=== PATIENT | female | born 1970 | race Caucasian/White ===

== ENCOUNTER 2022-12-01 17:51 | Emergency (ER) | payer BC ==
[~2022-12-01] VITALS: Ht 167.6 cm; Wt 87.1 kg
[2022-12-01 18:42] VITALS: BP_SYST 123
[2022-12-01] MEDS ORDERED: IBUP-1969 PO (19:20)
[2022-12-01 21:55] VITALS: BP_SYST 119
== END 2022-12-01 21:55 | disposition home or self-care (01) ==
LOC: SED 17:51
DX: R07.89 Other chest pain (principal); R07.81 Pleurodynia; Z79.899 Other long term (current) drug therapy
CPT/HCPCS: 71045; 71100; 99284

== ENCOUNTER 2023-01-20 17:56 | Emergency (ER) | payer BC ==
[~2023-01-20] VITALS: Ht 170.2 cm; Wt 89.8 kg
[~2023-01-20 17:56] MED LIST: IBUP-1969 PO
[2023-01-20 17:58] VITALS: BP_SYST 137
[2023-01-20] MEDS: IPRATROPIUM/ALBUTEROL SULFATE 3 ML AMPUL.NEB (DUONEB) INH ONE ×2 (18:52→20:41)
[2023-01-20] MEDS: predniSONE 20 MG TABLET PO ONE (19:06)
[2023-01-20] MEDS: AZITHROMYCIN 250 MG TABLET PO ONE (19:06)
[2023-01-20 19:10] LABS: BASOPHILS # (AUTO) 0.1 K/uL (0.0-0.2); EOSINOPHILS # (AUTO) 0.3 K/uL (0.0-0.4); EOSINOPHILS % (AUTO) 2.1 % (0.0-4.0); HEMATOCRIT 39.4 % (36-48); HEMOGLOBIN 13.5 g/dL (12.0-16.0); LYMPHOCYTES # (AUTO) 4.5 K/uL (1.0-5.5); LYMPHOCYTES % (AUTO) 37.3 % (20.5-51.5); MEAN CORPUSCULAR HEMOGLOBIN 32 pg (27-31); MEAN CORPUSCULAR HGB CONC 34 % (32-36); MEAN CORPUSCULAR VOLUME 94 fL (79.0-98.0); MONOCYTES # (AUTO) 0.8 K/uL (0.0-1.0); MONOCYTES % (AUTO) 6.4 % (1.7-9.3); NEUTROPHILS # (AUTO) 6.5 K/uL (1.8-7.7); NEUTROPHILS % (AUTO) 53.2 % (40.0-70.0); PLATELET COUNT (AUTO) 215 K/uL (130-430); RED BLOOD CELL COUNT(AUTO) 4.19 MIL/uL (4.2-6.2); RED CELL DISTRIBUTION WIDTH 13.3 % (9.0-15.0); WHITE BLOOD COUNT (AUTO) 12.2 K/uL (4.8-10.8)
[2023-01-20 20:00] LABS: ALBUMIN 3.7 g/dL (3.4-4.8); ANION GAP 9 (5-15); ASPARTATE AMINOTRANSFERASE 23 U/L (10-37); CALCIUM 9.7 mg/dL (8.4-11.0); CHLORIDE 97 mmol/L (98-107); CREATININE 0.85 mg/dL (0.55-1.30); GLUCOSE 91 mg/dL (70-99); TOTAL BILIRUBIN 0.3 mg/dL (0.0-1.0); UREA NITROGEN, BLOOD 25 mg/dL (8-21)
[2023-01-20 20:03] LABS: GFR AFRICAN AMERICAN 90 mL/min (>90)
[2023-01-20 20:10] LABS: ALANINE AMINOTRANSFERASE 42 U/L (12-78)
[2023-01-20] MEDS ORDERED: ZIT250 PO (20:45)
[2023-01-20] MEDS ORDERED: ALBMDI INH (20:45)
[2023-01-20] MEDS ORDERED: PRED20TA PO (20:45)
[2023-01-20 23:29] VITALS: BP_SYST 127
== END 2023-01-20 23:29 | disposition home or self-care (01) ==
LOC: SED 17:56
DX: J44.1 Chronic obstructive pulmonary disease with (acute) exacerbation (principal); R06.00 Dyspnea, unspecified; R07.81 Pleurodynia; R05.9 Cough, unspecified; Z79.899 Other long term (current) drug therapy
CPT/HCPCS: 99285; 71045; 80053; 85025; 84484; 36415; 93005; 94640; J7512; Q0144

== ENCOUNTER 2023-05-27 18:58 | Emergency (ER) | payer BC ==
[~2023-05-27] VITALS: Ht 167.6 cm; Wt 75.3 kg
[~2023-05-27 18:58] MED LIST changes: +ALBMDI INH; +PRED20TA PO; +ZIT250 PO
[2023-05-27 19:29] VITALS: BP_SYST 120; PULSE 94; RESP 20; TEMP 97.7; O2SAT 98
--- NOTE | 2023-05-27 19:33 | NUR ---
TPatient triaged and placed in waiting room. VSS and patient appears in no acute distress at this time. Accompanied by SELF, awaiting available bed, and MD notified of need for MSE.
--- NOTE | 2023-05-27 19:43 | NUR ---
ER Dr. ALVARADO at bedside examining patient.
[2023-05-27] MEDS ORDERED: KETOROLAC TROMETHAMINE 30 MG VIAL IM ONE (20:45)
--- NOTE | 2023-05-27 22:49 | NUR ---
PT BIB SELF FROM HOME, AMBULATED TO HALLWAY BED 1. PT A&Ox4, ABLE TO MAKE NEEDS KNOWN. PT C/O LEFT ARM PAIN BEGINNING TODAY AT 1500 DUE TO FALLING ASLEEP ON ARM. PT RATES PAIN 5/10. PT DENIES TAKING MEDICATION FOR THE PAIN. PT DENIES N/V/D, FEVER AND CHILLS. PT DENIES SOB AND CHEST PAIN. SAFETY PRECAUTIONS IN PLACE.
[2023-05-28] MEDS ORDERED: ACET-2634 PO (00:30)
[2023-05-28] MEDS ORDERED: IBUP-1969 PO (00:30)
[2023-05-28 00:43] VITALS: BP_SYST 100; PULSE 82; RESP 18; TEMP 97.7; O2SAT 98
--- NOTE | 2023-05-28 00:43 | NUR ---
Patient given written and verbal discharge instructions and verbalizes understanding. ER DR ALVARADO discussed with patient the results and treatment provided. Patient in stable condition. ID arm band removed. Rx of TYLENOL AND MOTRIN given. Patient educated on pain management and to follow up with PMD. Pain Scale 0/10. Opportunity for questions provided and answered. Medication side effect fact sheet provided.
== END 2023-05-28 00:43 | disposition home or self-care (01) ==
LOC: SED 18:58
DX: M79.632 Pain in left forearm (principal); J44.9 Chronic obstructive pulmonary disease, unspecified; Z79.899 Other long term (current) drug therapy
CPT/HCPCS: 99285; 93971; 73090; 93922; 96372; J1885

== ENCOUNTER 2023-12-21 22:58 | Emergency (ER) | payer BC ==
[~2023-12-21] VITALS: Ht 167.6 cm; Wt 81.6 kg
[~2023-12-21 22:58] MED LIST changes: +ACET-2634 PO
[2023-12-21 23:03] VITALS: BP_SYST 127; PULSE 104; RESP 16; TEMP 97.5; O2SAT 99
[2023-12-21] MEDS ORDERED: KETOROLAC TROMETHAMINE 60 MG/2 ML VIAL IM ONE (23:37)
[2023-12-21] MEDS: KETOROLAC TROMETHAMINE 60 MG/2 ML VIAL IM ONE (23:39)
[2023-12-22] MEDS: MORPHINE 4 MG INJ. 4 MG/ML VIAL IM ONE (00:48)
[2023-12-22] MEDS ORDERED: NAPR-1172 PO (01:02)
== END 2023-12-22 01:50 | disposition home or self-care (01) ==
LOC: SED 22:58
DX: S13.8XXA Sprain of joints and ligaments of other parts of neck, initial encounter (principal); S43.499A Other sprain of unspecified shoulder joint, initial encounter; J44.9 Chronic obstructive pulmonary disease, unspecified; Z79.899 Other long term (current) drug therapy; X58.XXXA Exposure to other specified factors, initial encounter; Y93.89 Activity, other specified; Y92.89 Other specified places as the place of occurrence of the external cause; Y99.8 Other external cause status
CPT/HCPCS: 99284; 96372 ×2; J1885; J2270